=== PATIENT | male | born 1975 | race Caucasian/White ===

== ENCOUNTER 2019-11-20 17:49 | Emergency (ER) | payer OTHER, SELFPAY ==
--- NOTE | ~2019-11-20 | XR_ITS ---
XR foot LT min 3V 11/20/2019 18:47 Indication: Left foot pain. No known injury. Procedure: 4 views left foot Comparison: No prior studies for comparison. Findings: Mild degenerative changes of the first MTP and IP joints. Osteopenia. Lisfranc joint is int act. Small degenerative calcaneal enthesophytes. No acute fracture or traumatic malalignment. No foca l soft tissue abnormality. No radiopaque foreign bodies. Impression: 1: No acute fracture. Reviewed, dictated and finalized at location A. [employer] Impression: 1: No acute fracture.
[2019-11-20 18:01] VITALS: BP 180/112; PULSE 90; RESP 18; TEMP 37.6; O2SAT 100
--- NOTE | 2019-11-20 18:27 | ED.LOWEXIN ---
HPI - Extremity Injury (Lower) General Chief Complaint: Extremity Injury, Lower Stated Complaint: Left Foot Pain Time Seen by Provider: 11/20/19 18:27 Source: patient Mode of arrival: ambulatory Limitations: no limitations History of Present Illness HPI Narrative: Shashi Yoon is a 44 yo male with PMH resistant HTN, heel spurs, who comes to express care with left lateral and solar foot pain that started within the last 3 days. He started wearing an old orthopedic boot for walking; denies any injury Related Data Home Medications Medication Instructions Recorded Confirmed escitalopram oxalate 10 mg DAILY 11/20/19 11/20/19 nifedipine 90 mg PO DAILY 11/20/19 11/20/19 valsartan-hydrochlorothiazide 1 tablet DAILY 11/20/19 11/20/19 Allergies Allergy/AdvReac Type Severity Reaction Status Date / Time Sulfa (Sulfonamide Allergy Mild Hives Verified 11/20/19 18:06 Antibiotics) Review of Systems Review of Systems: Narrative: CONSTITUTIONAL: Denies fever, chills, sweats. EYES: Denies visual changes, redness, discharge. ENT: Denies rhinorrhea, congestion, sore throat, otalgia. CARDIOVASCULAR: Denies chest pain, palpitations, edema. RESPIRATORY: Denies dyspnea, wheezing, cough GASTROINTESTINAL: Denies abdominal pain, nausea, vomiting, diarrhea. GENITOURINARY: Denies dysuria, hematuria, abnormal discharge SKIN: Denies rash or itching. NEUROLOGIC: Denies numbness, or focal weakness. PSYCHIATRIC: Denies anxiety or depression. Left lateral foot pain and pain on the sole of foot PMFSH Family History Family History Other No active medical problems Social History Social History (Updated 11/20/19 @ 18:49 by Keturah Zabala CNP) Smoking status: Never smoker Gender identity (if verbalized by the patient): Male Comments At time of signature, I agree with nursing past medical, surgical, social and family history. There is no relevant family history pertinent to the presenting complaint. Exam Narrative: Exam Narrative: GENERAL: This is a well-nourished, well-developed patient, in no apparent distress. HEAD: normocephalic, atraumatic. EYES: PERRL. Sclera clear/white. Vision is grossly intact. EARS: External ears normal, a. Hearing grossly intact. NOSE: External nose normal with no obvious nasal discharge, nares without redness, no rhinorrhea. THROAT: Mucous membranes moist, posterior pharynx clear. NECK: Neck supple, non-tender w CARDIOVASCULAR: Regular rate and rhythm without murmurs, gallops, or rubs. RESPIRATORY: Clear to auscultation. Breath sounds equal bilaterally. No wheezes, rales, or rhonchi. GASTROINTESTINAL: Abdomen soft, non-tender, nondistended. Bowel sounds are active. No hepato-splenomegaly, or palpable masses. No guarding. SKIN: warm, intact with no suspicious lesions or rash, good texture and turgor. NEURO: awake, alert, and oriented to person, place and time. There were no obvious focal neurologic abnormalities. Steady gait EXTREMITIES: Pain in left foot hurts when flexes and extends toes fully, most pain when puts pressure on foot to try walk BACK: Nontender without deformity or crepitance. Course Course Emergency Course: X-ray left foot Vital Signs Vital signs: Vital Signs Temperature 99.6 F 11/20/19 18:01 Pulse Rate 90 11/20/19 18:01 Respiratory Rate 18 11/20/19 18:01 Blood Pressure 180/112 H 11/20/19 18:01 Pulse Oximetry 100 11/20/19 18:01 Temperature 99.6 F 11/20/19 18:01 Pulse Rate 90 11/20/19 18:01 Respiratory Rate 18 11/20/19 18:01 Blood Pressure 160/98 H 11/20/19 19:07 Pulse Oximetry 100 11/20/19 18:01 MDM - Extremity Injury (Lower) Differential Diagnosis Differential diagnosis: Likely ankle sprain and strain, puncture wound of foot and other Discharge Plan Discharge Clinical Impression: Acute foot pain Qualifiers: Laterality: left Qualified Code(s): M79.672 - Pain in left foot P
[2019-11-20 19:07] VITALS: BP 160/98
== END 2019-11-20 19:07 | disposition home or self-care (01) ==
PROVIDERS: Emergency Provider Nurse Practitioner; PCP Family Medicine Adolescent Medicine
DX: M79.672 Pain in left foot (principal); I10 Essential (primary) hypertension; F41.9 Anxiety disorder, unspecified; F32.9 Major depressive disorder, single episode, unspecified
CPT/HCPCS: 73630; 99213; G0463

== ENCOUNTER 2020-03-23 16:55 | Inpatient (IN) | payer OTHER, SELFPAY ==
[2020-03-23] VITALS (14 sets, daily range): BP systolic 111–185; BP diastolic 87–114; PULSE 69–99; RESP 17–21; TEMP 36.6–36.8; O2SAT 92–99; BMI 34.9
--- NOTE | ~2020-03-23 | XR_ITS ---
EXAMINATION: XR chest 1V portable INDICATION: Left chest pain TECHNIQUE: Portable AP chest at 1729 hours COMPARISON: 10/05/2018 FINDINGS: The lungs are free of acute opacities. There is no pleural effusion or pneumothorax. The ca rdiomediastinal silhouette is normal. The visualized bones and soft tissues are unremarkable. IMPRESSION: 1. No acute cardiopulmonary abnormality. Reviewed, dictated and finalized at location A.
--- NOTE | 2020-03-23 17:17 | PC.NURSE ---
Report to GLORY Burnhma, to continue care.
--- NOTE | 2020-03-23 17:17 | ECG_ITS ---
Measurements Intervals [place] Rate: 91 P: 49 HI: 166 QRS: 46 QRSD: 105 T: 26 QT: 359 QTc: 443 Interpretive Statements SINUS RHYTHM POSSIBLE LEFT ATRIAL ENLARGEMENT BORDERLINE R WAVE PROGRESSION, ANTERIOR LEADS NONSPECIFIC ST ELEVATION IN ANTERIOR LEADS BORDERLINE ST-T WAVE ABNORMALITY- INFERIOR LEADS BORDERLINE ECG Electronically Signed On 03-24-2020 6:46:25 CDT by Jorge Batres D.O.
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
[2020-03-23 17:34] LABS: Basophils Percent Auto 0.4 % (0.2-1.2); Eosinophils Absolute Auto 0.2 K/mm3 (0-0.3); Eosinophils Percent Auto 1.9 % (0-4.4); Hematocrit 41.4 % (42.0-52.0); Hemoglobin 15.5 g/dL (14.0-18.0); Immature Granulocyte Absolute 0.02 K/mm3 (0.00-0.031); Immature Granulocyte Percent A 0.3 % (0-0.5); Lymphocytes Percent Auto 15.1 % (18.3-44.2); Mean Corpuscular HGB Conc 37.4 g/dl (32-36); Mean Corpuscular Hemoglobin 29.9 pg (26-34); Mean Corpuscular Volume 79.9 fl (80-100); Mean Platelet Volume 10.1 fl (7.4-10.4); Monocytes Absolute Auto 0.6 K/mm3 (0.1-0.6); Monocytes Percent Auto 7.9 % (2.6-8.5); Neutrophils Absolute Auto 5.9 K/mm3 (1.3-6.7); Neutrophils Percent Auto 74.4 % (45.5-73.1); Platelet Count Result 225 k/mm3 (150-375); Red Blood Count 5.18 M/mm3 (4.6-6.20); Red Cell Distribution Width 12.2 % (11.5-14.5); White Blood Count 7.9 K/mm3 (4.5-10.0)
[2020-03-23 18:03] LABS: INR 0.9; Partial Thromboplastin Time 24.1 SECONDS (22.3-36.8); Prothrombin Time 11.7 Seconds (11.1-14.7)
[2020-03-23 18:06] LABS: D Dimer 0.31 ug/mL (<0.48)
[2020-03-23] MEDS: MORPHINE SULFATE 2 MG/ML INJ IV PUSH (18:31)
[2020-03-23] MEDS: ASPIRIN 81 MG CHEWABLE TABLET 162 MG PO (18:31)
[2020-03-23] MEDS: METOPROLOL TARTRATE INJ 5 MG/5 ML VIAL IV PUSH (18:33)
[2020-03-23] MEDS: NITROGLYCERIN SL 0.4 MG TABLET SUBLINGUAL (18:35)
[2020-03-23 18:41] LABS: Basophils Percent Auto 0.2 % (0.2-1.2); Eosinophils Absolute Auto 0.1 K/mm3 (0-0.3); Eosinophils Percent Auto 1.5 % (0-4.4); Hemoglobin 15.7 g/dL (14.0-18.0); Immature Granulocyte Absolute 0.03 K/mm3 (0.00-0.031); Immature Granulocyte Percent A 0.4 % (0-0.5); Lymphocytes Absolute Auto 1.19 K/mm3 (0.9-3.2); Lymphocytes Percent Auto 14.6 % (18.3-44.2); Mean Corpuscular HGB Conc 37.4 g/dl (32-36); Mean Corpuscular Hemoglobin 29.9 pg (26-34); Mean Platelet Volume 10.6 fl (7.4-10.4); Monocytes Absolute Auto 0.7 K/mm3 (0.1-0.6); Monocytes Percent Auto 8.2 % (2.6-8.5); Neutrophils Absolute Auto 6.1 K/mm3 (1.3-6.7); Neutrophils Percent Auto 75.1 % (45.5-73.1); Platelet Count Result 228 k/mm3 (150-375); Red Blood Count 5.25 M/mm3 (4.6-6.20); Red Cell Distribution Width 12.3 % (11.5-14.5); White Blood Count 8.2 K/mm3 (4.5-10.0)
[2020-03-23] MEDS: HEPARIN SODIUM 5,000 UNITS/ML VIAL 4000 UNITS IV PUSH (18:44)
[2020-03-23 18:49] LABS: Alanine Aminotransferase 30 U/L (4-50); Albumin Level 4.3 g/dL (3.5-5.1); Alkaline Phosphatase 108 U/L (38-126); Aspartate Amino Transferase 62 U/L (17-59); Bilirubin,Total 0.4 mg/dL (0.2-1.3); Blood Urea Nitrogen 14 mg/dL (9-20); Calcium 9.2 mg/dL (8.4-10.2); Carbon Dioxide 27 mmol/L (22-30); Chloride 94 mmol/L (98-107); Estimated CRCL calculation 155 ml/min; Estimated Glomerular Filt Rate > 60; Glucose 405 mg/dL (75-110); Lipase 130 U/L (23-300); Potassium 3.2 mmol/L (3.4-5.0); Sodium 134 mmol/L (137-145)
[2020-03-23 18:51] LABS: INR 0.9; Partial Thromboplastin Time 24.1 SECONDS (22.3-36.8); Prothrombin Time 11.8 Seconds (11.1-14.7)
[2020-03-23 19:01] LABS: NT Pro B Type Natriuretic Pept 223 PG/ML (5-100)
--- NOTE | 2020-03-23 19:06 | PM.CNCAR ---
Assessment and Plan Assessment and plan (1) HTN (hypertension): Code(s): I10 - Essential (primary) hypertension Status: Acute (2) Chest pain: Code(s): R07.9 - Chest pain, unspecified Status: Acute (3) Elevated troponin: Code(s): R79.89 - Other specified abnormal findings of blood chemistry Status: Acute Additional Plan NSTEMI, persistent chest pain, Q wave inf wall in EKG, HTN urgency, DM uncontrolled, plan emergency LHC, heparin, ASA, Ticagrelor, statin, B0-shalom, ARBS History of Present Illness History of Present Illness Consult date/time: 03/23/20 19:06 Consult reason: chest pain Reason For Visit: chest pains Narrative: Patient presented with acute chest pain that started yesterday evening and has been persistent until today waxing waning mild to moderate in severity associated with nausea last night, Pain is burning, aching gas like, reterosternal radiates to left shoudler. He received antacid that provided partial relieve, in ER he received morphine with partial relieve. Review of Systems Review of Systems: All systems reviewed & are unremarkable except as noted in HPI and below PMFSH Past Medical History Medical History (Updated 03/23/20 @ 19:13 by Justus Aviles MD) HTN (hypertension) Family History Family History (Updated 03/23/20 @ 19:14 by Justus Aviles MD) Grandparent Acute myocardial infarction Other No active medical problems Social History Social History (Updated 11/20/19 @ 18:49 by Keturah Zabala CNP) Smoking status: Never smoker Gender identity (if verbalized by the patient): Male Meds Home Medications and Allergies Home Medications Medication Instructions Recorded Confirmed Type escitalopram oxalate 10 mg DAILY 11/20/19 11/20/19 History nifedipine 90 mg PO DAILY 11/20/19 11/20/19 History valsartan-hydrochlorothiazide 1 tablet DAILY 11/20/19 11/20/19 History Elvis Aspirin 81 mg PO DAILY 03/23/20 03/23/20 History Zyrtec 03/23/20 History Allergies Allergy/AdvReac Type Severity Reaction Status Date / Time Sulfa (Sulfonamide Allergy Mild Hives Verified 03/23/20 17:14 Antibiotics) Vital Signs Vital Signs - 24 hr 03/23/20 17:00 03/23/20 18:33 03/23/20 18:55 Temperature 36.8 C Pulse Rate 94 99 82 Respiratory Rate 17 20 Blood Pressure 183/114 H 111/87 Pulse Oximetry 99 98 Exam Const: General: comfortable and no acute distress Other: Able to lie flat HENMT: General nose exam: Normal nares present and no epistaxis Mouth: Yes moist mucous membranes Eyes: Sclera: sclerae normal Pupils: Equal, round and reactive pupils present Neck: Neck: supple and no JVD Carotids: no bruits Resp: Auscultation: clear to auscultation bilaterally and lung sounds not diminished Other: No chest wall tenderness Cardio: Rate: regular rate Rhythm: regular rhythm Heart sounds: no gallops, no murmurs and no rubs GI: GI Palp: Yes Soft to palpation and No Tenderness to palpation present (GI) Auscultation: normal bowel sounds Skin: General skin exam: normal color, rashes and/or lesions noted and no erythema Other: Warm Neuro: Cranial nerves: Yes Equal, round and reactive pupils present Speech: normal speech Other: No obvious focal deficit or facial asymmetry Extrem: General: no edema Right upper extremity: normal capillary refill Left upper extremity: normal capillary refill Right lower extremity: normal capillary refill; no edema Left lower extremity: normal capillary refill; no edema Other: Normal capillary refills Intact distal pulses. Results Labs and Meds Result diagrams: 03/23/20 18:11 03/23/20 18:11 Lab results: Cardiac Enzymes 03/23/20 03/23/20 Range/Units 17:27 18:11 AST 62 H (17-59) U/L Troponin I 9.470 H* Cancelled (0.000-0.034) ng/mL Coagulation 03/23/20 03/23/20 Range/Units 17:47 18:11 PT 11.7 11.8 (11.1-14.7) Seconds APTT 24
--- NOTE | 2020-03-23 19:16 | WPDMODSED ---
Moderate Sedation Note-Pt Data Patient Data Allergies Allergy/AdvReac Type Severity Reaction Status Date / Time Sulfa (Sulfonamide Allergy Mild Hives Verified 03/23/20 17:14 Antibiotics) Home Medications Medication Instructions Recorded Confirmed Type escitalopram oxalate 10 mg DAILY 11/20/19 11/20/19 History nifedipine 90 mg PO DAILY 11/20/19 11/20/19 History valsartan-hydrochlorothiazide 1 tablet DAILY 11/20/19 11/20/19 History Elvis Aspirin 81 mg PO DAILY 03/23/20 03/23/20 History Zyrtec 03/23/20 History Sedation/Anesthesia: No previous sedation/anesthesia problems (including family history). [facility] Past Medical History Medical History HTN (hypertension) Family History Family History (Updated 03/23/20 @ 19:14 by Justus Aviles MD) Grandparent Acute myocardial infarction Other No active medical problems Social History Social History Smoking status: Never smoker Gender identity (if verbalized by the patient): Male Mod Sed Physical Exam Physical Exam Pre Procedural Exam: Normal: Appearance, Eyes, Ears, Nose, Neck, Throat, Airway, Lungs, Heart Rate, Heart Rhythm, Neuro Exam, Abdomen, Liver, Kidneys, Spleen, Breasts, Extremities and Skin and Variation: Genitalia Hours since solid foods: 4 Hours since liquid intake: 4 Internal Medicine - PN: Obj Da Vital Signs Vital Signs: Vital Signs - 24 hr 03/23/20 17:00 03/23/20 18:33 03/23/20 18:55 Temperature 36.8 C Pulse Rate 94 99 82 Respiratory Rate 17 20 Blood Pressure 183/114 H 111/87 Pulse Oximetry 99 98 Meds/Results Radiology Results: ITS Impressions Chest X-Ray 03/23/20 17:35 IMPRESSION: 1. No acute cardiopulmonary abnormality. Labs CBC & Chem 7: 03/23/20 18:11 03/23/20 18:11 Labs: Laboratory Results - last 24 hr 03/23/20 03/23/20 03/23/20 17:27 17:28 17:47 WBC 7.9 RBC 5.18 Hgb 15.5 Hct 41.4 L MCV 79.9 L MCH 29.9 MCHC 37.4 H RDW 12.2 Plt Count 225 MPV 10.1 Immature Gran % (Auto) 0.3 Neut % (Auto) 74.4 H Lymph % (Auto) 15.1 L [place] % (Auto) 7.9 Eos % (Auto) 1.9 Baso % (Auto) 0.4 Lymph # (Auto) 1.20 [place] # (Auto) 0.6 Eos # (Auto) 0.2 Baso # (Auto) 0.0 Abs Immat Gran (auto) 0.02 Absolute Neuts (auto) 5.9 Absolute Nucleated RBC 0.0 Nucleated RBC % 0.0 PT 11.7 INR 0.9 APTT 24.1 D-Dimer 0.31 Sodium Potassium Chloride Carbon Dioxide BUN Creatinine Estim Creat Clear Calc Estimated GFR Glucose Calcium Total Bilirubin AST ALT Alkaline Phosphatase Troponin I 9.470 H* NT-Pro-B Natriuret Pep Total Protein Albumin Lipase 03/23/20 03/23/20 03/23/20 18:11 18:11 18:11 WBC 8.2 RBC 5.25 Hgb 15.7 Hct 42.0 MCV 80.0 MCH 29.9 MCHC 37.4 H RDW 12.3 Plt Count 228 MPV 10.6 H Immature Gran % (Auto) 0.4 Neut % (Auto) 75.1 H Lymph % (Auto) 14.6 L [place] % (Auto) 8.2 Eos % (Auto) 1.5 Baso % (Auto) 0.2 Lymph # (Auto) 1.19 [place] # (Auto) 0.7 H Eos # (Auto) 0.1 Baso # (Auto) 0.0 Abs Immat Gran (auto) 0.03 Absolute Neuts (auto) 6.1 Absolute Nucleated RBC 0.0 Nucleated RBC % 0.0 PT 11.8 INR 0.9 APTT 24.1 D-Dimer Sodium 134 L Potassium 3.2 L Chloride 94 L Carbon Dioxide 27 BUN 14 Creatinine 0.70 Estim Creat Clear Calc 155 Estimated GFR > 60 Glucose 405 H Calcium 9.2 Total Bilirubin 0.4 AST 62 H ALT 30 Alkaline Phosphatase 108 Troponin I Cancelled NT-Pro-B Natriuret Pep 223 H Total Protein 8.0 Albumin 4.3 Lipase 130 ASA Classification/Sedation ASA Classification/Sedation ASA Class: IV Risks: Risks, benefits and alternatives explained and patient/family accept
--- NOTE | 2020-03-23 19:18 | WPDCARDPROC ---
Cardiac Cath Procedure Note Date of procedure:: 03/23/20 Performing physician:: Justus Aviles MD Procedure Procedure note:: PROCEDURE 1. LHC 2. Coronary angiogram 3. PCI to OM3 INDICATION 1. NSTEMI HISTORY 44 Yrs old male with acute persistent chest pain since last night and elevated trop. ACCESS SITE: Rt Radial artery PROCEDURE DETAILS Time out done Access site prepped and draped in sterile fashion Moderate sedation with versed and Fentanyl Rt radial access with modified sieldinger technique Coronary angiogram was done with TIG 4 and LV corssed with same catheter HEMODYNAMICS No gradient across AV LVEDP 8 AO pressure 140/100 CORONARY ANGIOGRAM 1. Left main: normal 2. LAD: normal large vessel that gives intermediate size D1 and D2 withno obstructive disease 3. LCX: Large co-cominant vessel gives several OM and LPL branches, OM2 is large with proximal 70% stenosis. OM3 is intermediate size to large with proximal 90% stenosis subtotal occlusion, likely culprit lesion for NSTEMI. No change after IC NTG. 4. RCA. Co-dominant intermediate vessel that gives small rPDA, and proximal to mid RCA has diffuse 70% stneosis unchanged with IC NTG.. CONCLUSION 2 vessel CAD OM1 and mid RCA with moderate disease and OM3 with subtotal occlusion likely culprit for NSTEMI. PCI DETAILS Pre-intervention: 90% subtotal occlusion in proximal OM3, BRYAN 3 flow Guide catheter: JL3.5 Guide wire: Samurai Anticoagulation: Heparin 8000 total units Anti-platelet therapy: ASA and Ticagrelor Balloon angioplasty/Stent: Angioplasty with Emerge 2.25 * 12 then stent with ORSIRO 2.5 * 13 stent, post dilated with 2.5 * 8 NC Quantum balloon. Distal vessel has spasm treated with IC NTG and gentle balloon dilation with Quatnum NC balloon 2.0 * 12 Post-intervention: 0% residual stenosis and BRYAN 3 flow COMPLICATION None CONCLUSION S/P PCI to OM3 with one ALFONSO Orsaio 2.5 * 13 ALFONSO Residual moderate disease in OM2 and RCA RECOMMENDATION Medical management of CAD ASA and Ticagrelor Statin BP and risk factors control TTE
--- NOTE | 2020-03-23 20:33 | ECG_ITS ---
Measurements Intervals [place] Rate: 101 P: 37 MO: 140 QRS: 35 QRSD: 105 T: 17 QT: 342 QTc: 444 Interpretive Statements SINUS TACHYCARDIA BORDERLINE R WAVE PROGRESSION, ANTERIOR LEADS MINIMAL Q WAVES- INFERIOR LEADS NONSPECIFIC ST & T-WAVE ABNORMALITY- INF/LAT LEADS ABNORMAL ECG Electronically Signed On 03-24-2020 7:03:26 CDT by Jorge Batres D.O.
[2020-03-23 21:21] LABS: Glucose Point of Care 332 (65-105)
[2020-03-23] MEDS: SODIUM CHLORIDE 0.9% IV 1,000 ML 125 ML IV CONT (21:41)
[2020-03-23] MEDS: METOPROLOL TARTRATE 50 MG TAB PO (21:42)
[2020-03-23] MEDS: TICAGRELOR 90 MG TABLET PO (21:42)
--- NOTE | 2020-03-23 21:56 | ADMGEN ---
This patient, Shashi Yoon, was admitted to Intensive Care Unit-12 at 2100 on 03/23/2020. Patient/family oriented to hospital policies and general routines including ID bracelet, bed and alarms, visiting hours, pain management, procedures, bathroom and other care routines, personal items, smoking policy, room service/diet, and visiting hours. Valuables list has been completed. Information on how to activate the Rapid Response Team has been discussed. Patient/Family are encouraged to report perceived risks to care and to ask questions if they do not understand what they are told or what they should do.
[2020-03-23] MEDS: INSULIN HUMAN REGULAR (*BKC) 100 UNITS in SODIUM CHLORIDE 0.9% IV 99 ML 5.4 UNITS IV CONT (22:14)
[2020-03-23 22:50] LABS: Hemoglobin A1C 10.9 % (<5.7)
[2020-03-23 22:51] LABS: Partial Thromboplastin Time 27.7 SECONDS (22.3-36.8)
[2020-03-23 23:29] LABS: Glucose Point of Care 247 (65-105)
[2020-03-24] VITALS (23 sets, daily range): BP systolic 97–178; BP diastolic 58–107; PULSE 70–90; RESP 7–24; TEMP 36.1–36.6; O2SAT 94–99; BMI 34.9
--- NOTE | 2020-03-24 | ECHO_ITS ---
Patient Info Name: Shashi Yoon Age: 44 years : 1975 Gender: Male Ht: 72 in Wt: 265 lbs BSA: 2.51 m2 HR: 84 bpm BP: 165 / 83 mmHg Technical Quality: Fair Exam Date: 03/24/2020 8:51 AM Exam Location: [facility] Patient Status: Inpatient Admit Date: 03/23/2020 Staff Ordering Physician: Justus Aviles MD Systems Development Consultant: Pascual [facility], GLORIA, RT Attending Provider: Justus Aviles MD Exam Type: CA echo dop color flow w con Study Info Indications - NSTEMI Complete two-dimensional, color flow and Doppler transthoracic echocardiogram is performed with contrast to opacify the left ventricle and to improve the deliniation of the left ventricle endocardial borders. Contrast/Agitated Saline Contrast/Ag. Saline: Definity Amount: 1.00 ml Administered By: Adriana Paulson, RN Summary 1. Left ventricular systolic function is normal, estimated at 60-65%. No wall motion abnormality seen. 2. There is severely increased left ventricular septum thickness. Mild posterior wall thickness. 3. The left ventricular diastolic function is grade I diastolic dysfunction. 4. There is mild aortic valve sclerosis. 5. There is mild tricuspid valve regurgitation. 6. No pulmonary hypertension, estimated pulmonary arterial systolic pressure is 30 mmHg. Left Ventricle Left ventricular chamber dimension is normal. Left ventricular systolic function is normal, estimated at 60-65%. No wall motion abnormality seen. There is severely increased left ventricular septum thickness. Mild posterior wall thickness. Left ventricular septal wall motion is normal. The left ventricular diastolic function is grade I diastolic dysfunction. Right Ventricle Right ventricular chamber dimension is normal. Right ventricular systolic function is normal. Left Atria Left atrial chamber dimension is normal. Right Atria Right atrial chamber dimension is normal. Atrial Septum Intact interatrial septum visualized by color flow imaging. Aortic Valve The aortic valve is trileaflet. There is mild aortic valve sclerosis. There is no aortic valve stenosis. There is no aortic valve regurgitation. Pulmonic Valve The pulmonic valve is normal. There is no pulmonic valve stenosis. There is no pulmonic regurgitation. Mitral Valve The mitral valve has normal leaflets. There is no mitral valve stenosis. There is no mitral valve regurgitation. Tricuspid Valve The tricuspid valve leaflets are normal. There is no significant tricuspid valve stenosis. There is mild tricuspid valve regurgitation. No pulmonary hypertension, estimated pulmonary arterial systolic pressure is 30 mmHg. Pericardium/Pleural The pericardium appears normal. There is no pericardial effusion. Inferior Vena Cava Normal inferior vena cava with >50% collapse upon inspiration consistent with elevated right atrial pressure, 10 mmHg. Aorta The aortic root size at the sinus of Valsalva is normal. The prox ascending aorta size is normal. Left Ventricular Outflow Tract Name Value Normal LVOT 2D LVOT Diameter 2.11 cm LVOT Doppler
[2020-03-24] MEDS: hydrALAZINE HCL 20 MG/ML VIAL IV PUSH (00:20)
[2020-03-24 02:34] LABS: Glucose Point of Care 189 (65-105)
[2020-03-24 02:34] LABS: Glucose Point of Care 209 (65-105)
[2020-03-24 02:34] LABS: Glucose Point of Care 190 (65-105)
[2020-03-24 03:25] LABS: Glucose Point of Care 145 (65-105)
[2020-03-24 04:18] LABS: Glucose Point of Care 141 (65-105)
[2020-03-24 05:12] LABS: Blood Urea Nitrogen 12 mg/dL (9-20); Calcium 8.8 mg/dL (8.4-10.2); Carbon Dioxide 29 mmol/L (22-30); Chloride 100 mmol/L (98-107); Estimated CRCL calculation 176 ml/min; Estimated Glomerular Filt Rate > 60; Glucose 140 mg/dL (75-110); Potassium 2.7 mmol/L (3.4-5.0); Sodium 135 mmol/L (137-145)
[2020-03-24 05:59] LABS: Glucose Point of Care 162 (65-105)
[2020-03-24] MEDS: POTASSIUM CHLORIDE 20 MEQ TABLET 40 MEQ PO ×2 (06:32→12:15)
[2020-03-24 06:46] LABS: Glucose Point of Care 193 (65-105)
[2020-03-24] MEDS: hydroCHLOROthiazide 25 MG TABLET PO (09:21)
[2020-03-24] MEDS: METOPROLOL TARTRATE 50 MG TAB PO ×2 (09:21→20:54)
[2020-03-24] MEDS: VALSARTAN 160 MG TABLET 320 MG PO (09:21)
[2020-03-24] MEDS: ATORVASTATIN 40 MG TABLET 80 MG PO (09:21)
[2020-03-24] MEDS: PERFLUTREN LIPID MICROSPHERES 1.5 ML VIAL DILUTED TO 10 ML TOTAL VOLUME IV PUSH (09:21)
[2020-03-24] MEDS: ESCITALOPRAM OXALATE 10 MG TABLET PO (09:22)
[2020-03-24] MEDS: ASPIRIN 81 MG ENTERIC TABLET PO (09:22)
[2020-03-24] MEDS: TICAGRELOR 90 MG TABLET PO ×2 (09:22→20:54)
[2020-03-24] MEDS: INSULIN ASPART (*BKC) 100 UNITS/ML SUB-Q ×3 (09:22→17:02)
[2020-03-24] MEDS: NIFEdipine 30 MG TAB.ER.24 90 MG PO (09:22)
[2020-03-24 09:33] LABS: Glucose Point of Care 240 (65-105)
--- NOTE | 2020-03-24 11:00 | PM.PNCARD ---
Progress Note: A&P Assessment and Plan (1) NSTEMI (non-ST elevated myocardial infarction): Code(s): I21.4 - Non-ST elevation (NSTEMI) myocardial infarction Status: Acute Assessment and Plan: received 2.5 x 13 drug-eluting stent to OM branch. residual disease in right coronary artery 70%. I will address the coronary artery disease as an outpatient. I will set him up for follow-up with me in the office.. Patient can be transferred to the floor today. if stable can be discharged home Tomorrow. He was just diagnosed with new onset diabetes today.. consult hospitalist for management for diabetes (2) HTN (hypertension): Code(s): I10 - Essential (primary) hypertension Status: Acute Assessment and Plan: Continue current medications. Blood pressure better controlled. (3) Hypokalemia: Code(s): E87.6 - Hypokalemia Status: Acute Assessment and Plan: we will replace potassium. Order another 40 mEq KCl today. Subjective Date/time seen: date of service 03/24/20 11:00 chief complaint: NSTEMI denies chest pain, shortness of breath, dizziness, syncope. No events on telemetry. Review of Systems Constitutional: Constitutional: Denies chills, Denies fever(s) and Denies poor appetite Eyes: Eyes: Denies eye discharge, Denies loss of vision, Denies eye pain and Denies photophobia ENT: Denies dizziness, Denies epistaxis, Denies nasal congestion and Denies sore throat Cardiovascular: Cardiovascular: Denies chest pain, Denies syncope, Denies pedal edema, Denies leg edema, Denies palpitations, Denies dyspnea, Denies dyspnea on exertion and Denies orthopnea Respiratory: Respiratory: Denies cough, Denies dyspnea, Denies dyspnea on exertion and Denies wheezing Gastrointestinal: Gastrointestinal: Denies abdominal pain, Denies diarrhea, Denies nausea and Denies vomiting Genitourinary: Genitourinary: Denies hematuria, Denies genital lesions and Denies dysuria Musculoskeletal: Musculoskeletal: Denies arthralgias, Denies joint swelling and Denies numbness Integumentary/Breasts: Skin/Breast: Denies pruritus and Denies rash Neurologic: Denies dizziness, Denies syncope, Denies loss of vision and Denies numbness Psychiatric: Psychiatric: Denies anxiety and Denies depression Endocrine: Endocrine: Denies cold intolerance, Denies heat intolerance and Denies palpitations Hematologic/Lymphatic: Hematologic/Lymphatic: Denies easy bleeding and Denies easy bruising Allergic/Immunologic: Allergic/Immunologic: Denies urticaria and Denies wheezing Exam Const: General: cooperative, comfortable, no acute distress, alert and awake Nutritional Appearance: well nourished Orientation/consciousness: patient oriented x3 HENMT: Head: normal to inspection, normocephalic and atraumatic Ears: hearing grossly normal bilaterally General nose exam: Normal external nose present, Normal nares present and no nasal discharge noted Face and sinus: normal facial exam and no erythema Mouth: No drooling and No restricted motion Throat: uvula midline Eyes: General: appearance normal, both eyes and all related structures Alignment and Position: position normal Conjunctivae: conjunctivae normal Sclera: sclerae normal Direct Ophthalmoscopy: No photophobia Neck: Neck: normal visual inspection and no JVD Thyroid: thyroid normal Carotids: no bruits Lymphatic: lymphedema not noted Chest: Chest palpation & inspection: normal inspection of the chest and no tenderness Resp: Effort & Inspection: normal respiratory effort and no nasal flaring Auscultation: clear to auscultation bilaterally, no crackles, no rales and no wheezes Cardio: Jugular venous distension: no JVD Rate: regular rate Rhythm: regular rhythm Heart sounds: S1 normal heart sound present, S2 normal heart sound present, no gallops, no murmurs and no rubs GI: Inspection: non-distended GI Palp: No abdominal tenderness and No Soft to palp
[2020-03-24] MEDS: LORATADINE 10 MG TABLET PO (11:16)
[2020-03-24] MEDS: ACETAMINOPHEN 325 MG TABLET 650 MG PO (11:16)
[2020-03-24 12:14] LABS: Blood Urea Nitrogen 11 mg/dL (9-20); Calcium 8.7 mg/dL (8.4-10.2); Carbon Dioxide 27 mmol/L (22-30); Chloride 101 mmol/L (98-107); Estimated CRCL calculation 135 ml/min; Estimated Glomerular Filt Rate > 60; Glucose 229 mg/dL (75-110); Potassium 3.4 mmol/L (3.4-5.0); Sodium 133 mmol/L (137-145)
[2020-03-24 12:20] LABS: Glucose Point of Care 207 (65-105)
[2020-03-24] MEDS: hydrALAZINE HCL 20 MG/ML VIAL 10 MG IV PUSH (12:27)
[2020-03-24] MEDS: metFORMIN HCL 500 MG TABLET PO (13:38)
--- NOTE | 2020-03-24 15:04 | WPDCNINT ---
Assessment and Plan Assessment and plan (1) NSTEMI (non-ST elevated myocardial infarction): Code(s): I21.4 - Non-ST elevation (NSTEMI) myocardial infarction Status: Acute Assessment and Plan: Chest pain with Q-waves in inferior wall on EKG with elevated troponin -and shows status post cardiac catheterization with PCI to OM1 and with residual 70% stenosis to RCA -continue aspirin, statin, beta-shalom, Brilinta -cardiology following the patient (2) Essential hypertension: Code(s): I10 - Essential (primary) hypertension Status: Acute Assessment and Plan: Continue beta-shalom, nifedipine, valsartan -p.r.n. hydralazine (3) Type 2 diabetes mellitus: Code(s): E11.9 - Type 2 diabetes mellitus without complications Status: Acute Assessment and Plan: Patient started on metformin, continue Accu-Cheks and sliding scale insulin (4) Hypokalemia: Code(s): E87.6 - Hypokalemia Status: Acute Assessment and Plan: Repleted potassium Additional Plan Discussed with patient updated with his condition and plan of care. Code status: Full code Critical care time spent: 36 minutes Due to a high probability of clinically significant, life threatening deterioration, the patient required my highest level of preparedness to intervene emergently and I personally spent this critical care time directly and personally managing the patient. This critical care time included obtaining a history; examining the patient; pulse oximetry; ordering and review of studies; arranging urgent treatment with development of a management plan; evaluation of patient's response to treatment; frequent reassessment; and discussions with other providers. It was exclusive of separately billable procedures and treating other patients and teaching time. Please see Assessment and Plan section and the rest of the note for further information on patient assessment and treatment Environmental Specialist Consult Note Consult date: 03/24/20 Time Seen: 07:09 Reason for consult: ST-elevation AK cardiac catheterization, PCI and ALFONSO to OM branch, residual disease in right coronary artery 70%. HPI: Shashi Yoon is a 44 year old male essential hypertension presented the ED on 03/23/2020 in the evening for evaluation of midsternal chest pain which started on 03/22/2020 at night. Patient has been having waxing and waning chest pain which was burning, aching and gaslike retrosternal pain. Radiating to left shoulder. Patient had persistent chest pain, Q-wave in inferior wall of the EKG elevated troponin, Patient was diagnosed with NSTEMI and was taken to cardiac labor utilization superintendent he had a PCI and ALFONSO to when branch. There was residual disease of 70% and right coronary artery. Patient was transferred to the ICU for further management Patient seen and examined this morning in the ICU, was complaining of headache. Denies any chest pain, shortness of breath abdominal pain, nausea vomiting. Appetite has been good. Patient has been afebrile with good urine output. Globin A1c this admission is 10.9. Potassium was 2.7 this morning Review of Systems Review of Systems: All systems reviewed & are unremarkable except as noted in HPI and below PMFSH Past Medical History Medical History (Updated 03/24/20 @ 13:13 by Ninfa Fuller PA-C) Anxiety Coronary artery disease Essential hypertension Type 2 diabetes mellitus Family History Family History Grandparent Acute myocardial infarction Father Cerebrovascular accident Hypertension Mother Hypertension Mother Diabetes mellitus Other No active medical problems Social History Social History (Updated 03/24/20 @ 13:11 by Ninfa Fuller PA-C) Social History: Surrogate decision maker: Sierraher Yoon, spouse. Code status: Full code. Smoking packs per day: 3 Smoking cigarettes per day: 60.0 Years smoked: 15 Sm
[2020-03-24 16:34] LABS: Add Urine Microscopic? YES; Appearance Urine Clear (Clear); Bilirubin Urine Negative (Negative); Blood Urine 1+ (Negative); Color Urine Straw (Yellow); Glucose Urine UA 3+ mg/dL (Negative); Ketones Urine Negative (Negative); Leukocyte Esterase Ur Negative LEU/UL (Negative); Nitrate Urine Negative (Negative); Protein Urine Negative (Negative); RBC Urine 0-2 /hpf (0-2); Specific Grav Ur 1.014 (1.001-1.035); Urobilinogen Urine Negative mg/dL (<2.0); WBC Urine 0-3 /hpf
[2020-03-24 16:46] LABS: Amphetamine Screen Urine Negative (Negative); Barbiturate Screen Urine Negative (Negative); Benzodiazepines Screen Urine Negative (Negative); Cannabinoid Screen Urine Negative (Negative); Cocaine Screen Urine Negative (Negative); Methadone Screen Urine Negative (Negative); Opiate Screen Urine Negative (Negative); Phencyclidine Screen Urine Negative (Negative)
[2020-03-24 17:04] LABS: Glucose Point of Care 208 (65-105)
--- NOTE | 2020-03-24 17:42 | PC.NURSE ---
This patient, Shashi Yoon, was transferred to [ 212] on 03/24/20 at 1742. Personal belongings sent with patient. Belongings list checked and signed with receiving [ ]. Report given to [GLORY Lozano @ [id number] ]. Appropriate documentation sent with patient. Pt transfered via wheelchair w/ no issues noted.
--- NOTE | 2020-03-24 18:00 | WPDCN ---
Assessment and Plan Assessment and plan (1) NSTEMI (non-ST elevated myocardial infarction): Code(s): I21.4 - Non-ST elevation (NSTEMI) myocardial infarction Status: Acute Assessment and Plan: Status post drug-eluting stent to OM [address] Aviles He has been started on aspirin, ticagrelor, and beta-shalom. (2) Essential hypertension: Code(s): I10 - Essential (primary) hypertension Status: Acute Assessment and Plan: Blood pressure was consistently in the 150s to 160 systolic on arrival but have improved since the addition of a beta-shalom. Will continue antihypertensives and monitor daily. (3) Type 2 diabetes mellitus: Code(s): E11.9 - Type 2 diabetes mellitus without complications Status: Acute Assessment and Plan: He has been started on metformin and would benefit from a GLP-1 agonist or SGL2 inhibitor, which are not on formulary at the hospital. As such, I asked that he schedule a follow-up with his primary care provider next week for further discussion regarding appropriate treatment. The hospice educator has seen the patient today, and he will be instructed to keep a log of his glucose to bring to that appointment. (4) Anxiety: Code(s): F41.9 - Anxiety disorder, unspecified Status: Acute Assessment and Plan: Continue escitalopram. Additional Plan Thank you for allowing us to participate in this patient's care. Please do not hesitate to contact us with any questions. Supervising physician for this medical consultation is Dr. Karon Browning. HPI Data of Consult Date/Time: 03/24/20 13:00 Requesting Physician: Justus Aviles MD Primary Care Provider: Bigg Delgadillo MD Consult Narrative Narrative: Shashi Yoon is 44-year-old male whom the hospitalist service has been consulted for management of new onset type 2 diabetes mellitus. The patient presented to the emergency department on the evening of 03/23/2020 with reports of midsternal chest pain that began at approximately 22:00 the previous evening. EKG on arrival showed Q-waves in the inferior leads with a markedly elevated troponin. Due to persistent chest pain he was taken to the cardiac cath technologist per Dr. Aviles with coronary angiography demonstrating subtotal occlusion of OM 3 for which a drug-eluting stent was placed. He was also found to have moderate disease of OM 1 and the mid RCA. In any event, his random and fasting glucoses were elevated prompting a hemoglobin A1c which came back at 10.9% and we are being consulted in this setting. He cannot remember the last time he had lab work, and has never been told of elevated glucose levels previously. He reports that he has been thirsty ever since he was a child and that is unchanged. Since he has turned 40 he is needed to use reading glasses but he denies any fluctuation in blurry vision. Occasionally he has tingling in his toes, but he suffers from plantar fasciitis and heel spurs and he is always blamed it on that. His weight has remained stable and he has not had any significant weight loss. At the time my evaluation he is resting comfortably and is eager for discharge home. He is having no chest pain. Review of Systems Review of Systems: Narrative: Twelve systems were reviewed with pertinent positives and negatives as per HPI. No fever, chills, or sweats. No recent cold or flu symptoms. He does suffer from seasonal rhinitis and is having itchy watery eyes at this time. He denies orthopnea, PND, and lower extremity edema. No history of sleep apnea. Except as documented, all other systems were reviewed and are negative. [facility] Past Medical History Medical History (Updated 03/24/20 @ 20:06 by Ninfa Fuller PA-C
[2020-03-24 20:42] LABS: Glucose Point of Care 237 (65-105)
[2020-03-25] VITALS (10 sets, daily range): BP systolic 137–157; BP diastolic 79–99; PULSE 68–90; RESP 18–20; TEMP 35.9–36.4; O2SAT 97–99
[2020-03-25 04:31] LABS: Blood Urea Nitrogen 11 mg/dL (9-20); Calcium 9.1 mg/dL (8.4-10.2); Carbon Dioxide 28 mmol/L (22-30); Chloride 100 mmol/L (98-107); Estimated CRCL calculation 135 ml/min; Estimated Glomerular Filt Rate > 60; Glucose 226 mg/dL (75-110); Potassium 3.3 mmol/L (3.4-5.0); Sodium 134 mmol/L (137-145)
[2020-03-25 08:08] LABS: Glucose Point of Care 208 (65-105)
[2020-03-25] MEDS: TICAGRELOR 90 MG TABLET PO (08:11)
[2020-03-25] MEDS: ASPIRIN 81 MG ENTERIC TABLET PO (08:11)
[2020-03-25] MEDS: METOPROLOL TARTRATE 50 MG TAB PO (08:12)
[2020-03-25] MEDS: ESCITALOPRAM OXALATE 10 MG TABLET PO (08:12)
[2020-03-25] MEDS: hydroCHLOROthiazide 25 MG TABLET PO (08:12)
[2020-03-25] MEDS: VALSARTAN 160 MG TABLET 320 MG PO (08:13)
[2020-03-25] MEDS: metFORMIN HCL 500 MG TABLET PO (08:17)
[2020-03-25] MEDS: ATORVASTATIN 40 MG TABLET 80 MG PO (08:17)
[2020-03-25] MEDS: LORATADINE 10 MG TABLET PO (08:17)
[2020-03-25] MEDS: NIFEdipine 30 MG TAB.ER.24 90 MG PO (08:18)
[2020-03-25] MEDS: INSULIN ASPART (*BKC) 100 UNITS/ML SUB-Q (08:19)
--- NOTE | 2020-03-25 08:35 | PM.IMPN ---
Progress Note: A&P Assessment and Plan (1) NSTEMI (non-ST elevated myocardial infarction): Code(s): I21.4 - Non-ST elevation (NSTEMI) myocardial infarction Status: Acute Assessment and Plan: -----patient is status post drug-eluting stent yesterday. Continue aspirin, ticagrelor, and beta-shalom. Likely discharge home today. Medically stable (2) Essential hypertension: Code(s): I10 - Essential (primary) hypertension Status: Acute Assessment and Plan: -----last blood pressure 157/99 before home medications. Continue hydrochlorothiazide, metoprolol, and valsartan (3) Type 2 diabetes mellitus: Code(s): E11.9 - Type 2 diabetes mellitus without complications Status: Acute Assessment and Plan: -----new onset type 2 diabetes with an A1c 10.9. Last glucose was 208. Plan to discharge on metformin 500 mg b.i.d.. He is to follow-up with Dr. Chopra with his glucose readings and at that time he may need a secondary medication such as a GLP-1 agonist or SGL2 inhibitor or possibly Lantus. He has been relatively well controlled here at the hospital so I want to see how the metformin does for the week. (4) Anxiety: Code(s): F41.9 - Anxiety disorder, unspecified Status: Acute Assessment and Plan: -----Continue escitalopram. (5) Hypokalemia: Code(s): E87.6 - Hypokalemia Status: Acute Assessment and Plan: -----replaced. Patient is on hydrochlorothiazide at home and on admission was low. Would suggest 20meq at home and recheck bmp in 1 week and results to be sent to Dr. Chopra Time Spent With Patient Time with patient: 25 - 35 minutes Subjective Date/time seen: 03/25/20 08:35 Interval history: Pt is a 44-year-old male here for NSTEMI and new onset diabetes. Patient was seen today and feels great. He has not had any chest pain, shortness of breath, arm pain or jaw pain. He has no pain at the procedure site. He is eating and drinking well. He states that he does have a family history of diabetes but has never been told he has diabetes until this hospitalization. He sees Dr. Chopra and plans to see him in 1-2 weeks. He talked to the adult educator yesterday and has no further questions. He understands how to work his glucometer. Review of Systems Review of Systems: All systems reviewed & are unremarkable except as noted in HPI and below Exam Narrative: Exam Narrative: General: Well developed well nourished patient resting comfortably in bed in NAD HEENT: normocephalic Neck: supple Neuro: Alert and oriented x4 CV:RRR. Telemetry reviewed, no significant abnormalities noted Resp:CTA Abd: Soft, non distended. No pain to palpation. Positive bowel sounds Extremities: No swelling, erythema, or pain to palpation. Procedure site on the right wrist is clean and dry Objective Data Vital Signs Vital Signs: Vital Signs - 24 hr 03/24/20 09:21 03/24/20 10:00 03/24/20 12:00 Temperature 97.3 F L Pulse Rate 87 90 77 Respiratory Rate 21 H 21 H Blood Pressure 161/99 H 167/100 H Pulse Oximetry 98 96 03/24/20 13:10 03/24/20 14:00 03/24/20 16:00 Temperature 97.0 F L Pulse Rate 88 79 Respiratory Rate 19 Blood Pressure 115/70 151/94 H Pulse Oximetry 97 03/24/20 17:39 03/24/20 19:37 03/24/20 20:00 Temperature 97.7 F Pulse Rate 78 82 88 Respiratory Rate 20 Blood Pressure 121/78 Pulse Oximetry 98 98 03/24/20 20:54 03/24/20 22:00 03/24/20 23:40 Temperature 97.5 F L Pulse Rate 86 74 74 Respiratory Rate 20 Blood Pressure 126/72 Pulse Oximetry 99 03/25/20 00:00 03/25/20 02:00 03/25/20 03:50 Temperature 97.5 F L Pulse Rate 68 70 73 Respiratory Rate 18 Blood Pressure 137/79 Pulse Oximetry 99 97 03/25/20 04:00 03/25/20 06:00 03/25/20 07:54 Temperature 96.7 F L Pulse Rate 68 68 73 Respiratory Rate 20 Blood Pressure 157/99 H Pulse Oximetry 97 97
[2020-03-25] MEDS: POTASSIUM CHLORIDE 20 MEQ TABLET 40 MEQ PO (09:16)
--- NOTE | 2020-03-25 11:05 | PM.DS ---
DS: Admitting Diagnosis Admitting Diagnosis Admitting Diagnosis: NSTEMI DS: Discharge Diagnosis Discharge Diagnosis (1) NSTEMI (non-ST elevated myocardial infarction): Code(s): I21.4 - Non-ST elevation (NSTEMI) myocardial infarction Status: Acute Assessment and Plan: Patient was admitted with chest pain and a troponin of 9, minor EKG changes. He was taken emergently to the cardiac catheterization lab by Dr. Fede Gaxiola who found the OM 3 which was medium to large in size was subtotally occluded and place a drug-eluting stent (ALFONSO Orsaio 2.5 X 13 mm). The patient also had 70% stenosis of a large OM2 and 70% stenosis of a non dominant right coronary artery. His troponins peaked at 15. The patient already was taking aspirin and valsartan HCT at home. He was started on Brilinta, and metoprolol as well as atorvastatin. He did well and had no further chest discomfort. He was up and ambulating with no difficulties today. I discussed with the patient need for secondary prevention. He does admit to a terrible diet. Discussed CAD, follow-up, treatment, etc.. I reviewed the need for dual anti-platelet therapy; failure to take his medications regularly can result in stent thrombosis, GA and . ECHO: 1. Left ventricular systolic function is normal, estimated at 60-65%. No wall motion abnormality seen. 2. There is severely increased left ventricular septum thickness. Mild posterior wall thickness. 3. The left ventricular diastolic function is grade I diastolic dysfunction. 4. There is mild aortic valve sclerosis. 5. There is mild tricuspid valve regurgitation. (2) Type 2 diabetes mellitus: Code(s): E11.9 - Type 2 diabetes mellitus without complications Status: Acute Assessment and Plan: New onset of diabetes, A1c greater than 10. Hospitalists consulted. Started on metformin and saw the community health educator. Will follow-up with Dr. Chopra. (3) HTN (hypertension): Code(s): I10 - Essential (primary) hypertension Status: Acute Assessment and Plan: Hypertension is always been difficult to control. Was still running a bit high here even after the metoprolol was added. Follow-up with Dr. Chopra and Dr. Lara. (4) Hypokalemia: Code(s): E87.6 - Hypokalemia Status: Acute Assessment and Plan: Noted to be hypokalemic, probably related to the valsartan HCT, started on potassium. (5) Hyperlipidemia: Code(s): E78.5 - Hyperlipidemia, unspecified Status: Acute Assessment and Plan: Lipid panel ordered prior to discharge. Started on atorvastatin high dose. DS: Summary Time Spent with Patient Time attestation: Total time spent providing and/or coordinating discharge services:40 min Exam Const: General: comfortable and no acute distress HENMT: Mouth: Yes moist mucous membranes Eyes: EOM: EOMs intact bilaterally Neck: Neck: supple Thyroid: thyroid normal Resp: Effort & Inspection: normal respiratory effort Auscultation: clear to auscultation bilaterally Cardio: Rate: regular rate Rhythm: regular rhythm Heart sounds: no murmurs GI: Inspection: non-distended GI Palp: Yes Soft to palpation and No Tenderness to palpation present (GI) Skin: General skin exam: normal color and no rashes or lesions noted Neuro: General: gait normal Motor exam (neuro): Normal motor muscle tone present throughout Extrem: Right lower extremity: no edema Left lower extremity: no edema Psych: Mental Status: mental status grossly normal Affect: normal affect DS: Data Data Completed and Pending Labs on day of discharge: Labs from last 24 hours 03/25/20 03/25/20 03/24/20 07:56 04:09 20:40 Sodium 134 L Potassium 3.3 L Chloride 100 Carbon Dioxi
[2020-03-25 12:00] LABS: LDL Cholesterol Direct 54 mg/dL
[2020-03-25 12:09] LABS: Cholesterol 271 mg/dL (0-200)
[2020-03-25 12:11] LABS: Triglycerides 1150 mg/dL (<150)
[2020-03-27 13:08] LABS: Activated Clotting Time 169 SEC (74-137)
== END 2020-03-25 12:55 | disposition home or self-care (01) | DRG 247 ==
LOC: ANHED 19:09 → ANHICU 20:35 → ANHIMU 03-25 07:04 → ANHICU 03-28 16:43 → ANHIMU 03-28 16:43
PROVIDERS: Emergency Medicine Emergency Medical Services; Internal Medicine; Physician Assistant; Admitting Provider Internal Medicine Interventional Cardiology; Emergency Provider Emergency Medicine; PCP Family Medicine Adolescent Medicine; Visit Provider Internal Medicine Cardiovascular Disease
PROC: 4A023N7 Measurement of Cardiac Sampling and Pressure, Left Heart, Percutaneous Approach (ICD-10-PCS; CPT 93452; principal; 2020-03-23 18:45)
PROC: 027034Z Dilation of Coronary Artery, One Artery with Drug-eluting Intraluminal Device, Percutaneous Approach (ICD-10-PCS; CPT 92928; 2020-03-23 18:45)
DX: I21.4 Non-ST elevation (NSTEMI) myocardial infarction (principal); I25.10 Atherosclerotic heart disease of native coronary artery without angina pectoris; E11.9 Type 2 diabetes mellitus without complications; I10 Essential (primary) hypertension; E87.6 Hypokalemia; E78.5 Hyperlipidemia, unspecified; F41.9 Anxiety disorder, unspecified; Z87.891 Personal history of nicotine dependence
CPT/HCPCS: 36415; 71045; 80048; 80053; 80061; 80307; 81001; 83036; 83690; 83880; 84484; 85025; 85380; 85610; 85730; 93005; 93458; 99285; A9270; C1725; C1769; C1874; C1887; C1894; C8929; C9600; J0360; J1644; J1815; J2250; J2270; J3010; J3480; J7030; J7040; Q9957

== ENCOUNTER 2020-03-30 11:50 | Outpatient (CLI) | payer OTHER, SELFPAY ==
[2020-03-30 12:39] LABS: Blood Urea Nitrogen 21 mg/dL (9-20); Calcium 9.5 mg/dL (8.4-10.2); Carbon Dioxide 26 mmol/L (22-30); Chloride 98 mmol/L (98-107); Estimated Glomerular Filt Rate > 60; Glucose 167 mg/dL (75-110); Potassium 3.7 mmol/L (3.4-5.0); Sodium 136 mmol/L (137-145)
== END 2020-03-30 11:51 | disposition home or self-care (01) ==
PROVIDERS: PCP Family Medicine Adolescent Medicine; Visit Provider Physician Assistant
DX: E87.6 Hypokalemia (principal)
CPT/HCPCS: 36415; 80048

== ENCOUNTER 2020-03-31 06:04 | Emergency (ER) | payer OTHER, SELFPAY ==
--- NOTE | 2020-03-31 06:09 | ED.CPR ---
HPI - CPR General Chief Complaint: Cardiac Arrest/CPR Stated Complaint: arrest Time Seen by Provider: 03/31/20 06:09 Source: EMS Mode of arrival: EMS Limitations: clinical condition History of Present Illness HPI narrative: Patient is a 44-year-old male with a history of hypertension, diabetes, obesity, recent cardiac catheterization March 23 for NSTEMI who presents as a cardiac arrest. History is obtained through EMS report. EMS was called by patient's this morning after the patient was found to have no respirations while he was sleeping. The patient's started CPR, at the time of EMS arrival, patient rhythm strip showed arrhythmia of ventricular tachycardia for which the patient was defibrillated, repeat rhythm showed V. fib for which the patient was defibrillated. Patient was given amiodarone, and then the patient went into asystole. Patient had 5 rounds epinephrine prior to arrival to our facility. Glucose per EMS >100. At the time of arrival to our facility, patient is pulseless. CPR In progress. Demario airway in place. Patient is mottled. Related Data Home Medications Medication Instructions Recorded Confirmed escitalopram oxalate 10 mg PO DAILY 11/20/19 03/23/20 nifedipine 90 mg PO DAILY 11/20/19 03/23/20 valsartan-hydrochlorothiazide 1 tablet DAILY 11/20/19 03/23/20 Elvis Aspirin 81 mg PO DAILY 03/23/20 03/23/20 Zyrtec 10 mg BYMOUTH DAILY 03/23/20 03/23/20 Allergies Allergy/AdvReac Type Severity Reaction Status Date / Time Sulfa (Sulfonamide Allergy Mild Hives Verified 03/23/20 17:14 Antibiotics) Review of Systems Review of Systems: ROS unobtainable: Yes unobtainable due to medical condition [facility] Past Medical History Medical History Anxiety Coronary artery disease Essential hypertension Hyperlipidemia Type 2 diabetes mellitus Hemoglobin A1c was 10.9% on 03/23/2020. Surgical History Surgical History History of cardiac catheterization (~02/2020) With drug-eluting stent OM 3. Family History Family History Grandparent Acute myocardial infarction Father Cerebrovascular accident Hypertension Mother Hypertension Mother Diabetes mellitus Other No active medical problems Social History Social History Social History: Surrogate decision maker: Sierra Yoon, spouse. Code status: Full code. Smoking packs per day: 3 Smoking cigarettes per day: 60.0 Years smoked: 15 Smoking pack-years: 45.00 Smoking status: Former smoker Tobacco type: cigarettes Alcohol intake: current Drinks per week: 4 Substance use: never Additional living arrangements comments: Lives at home with his in [place]. 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 Gender identity (if verbalized by the patient): Male Spiritual care concerns: No Exam Narrative: Exam Narrative: GENERAL: Unconscious, unresponsive HEAD: Normocephalic, atraumatic. EYES: Pupils are dilated and fixed bilaterally ENT: Demario airway in place NECK: Supple. CHEST: CPR in progress HEART: Asystole, pulseless ABDOMEN:Non distended EXTREMITIES:No edema. SKIN: Cool, mottled NEURO: Unconscious, unresponsive, no spontaneous movement Course Course Emergency Course: Patient is a 44-year-old male with a recent history of NSTEMI, cardiac catheterization, discharge from this hospital approximately 1 week ago, who presented as a cardiac arrest. Patient have several rounds of epinephrine prior to arrival and was defibrillated from V. tach into V. fib, before asystole. Patient had been given amiodarone by EMS. At the time of arrival, patient is unconscious, unresponsive, apneic, skin is cool and mottled. Pupils are fixed and dilated. There i
--- NOTE | 2020-03-31 09:05 | PC.NURSE ---
MTS returned call and patient is candiditate. States will set up transfer now.
== END 2020-03-31 09:07 | disposition expired ==
PROVIDERS: Emergency Provider Emergency Medicine; PCP Family Medicine Adolescent Medicine
DX: I46.9 Cardiac arrest, cause unspecified (principal); I10 Essential (primary) hypertension; E11.9 Type 2 diabetes mellitus without complications; I25.10 Atherosclerotic heart disease of native coronary artery without angina pectoris; E66.9 Obesity, unspecified; I25.2 Old myocardial infarction; Z95.1 Presence of aortocoronary bypass graft; Z87.891 Personal history of nicotine dependence
CPT/HCPCS: 36680; 92950; 99285